=== PATIENT | female | born 1950 | race Caucasian/White ===

== ENCOUNTER 2022-01-05 09:58 | Emergency (ER) | payer OTHER ==
--- OUTSIDE RECORDS SUMMARY | 2022-01-05 10:00 | XMS REPORT | Continuity of Care Document ---
:1950 Author Organization [facility] t Address [address] [place] [address] Care Team Providers Name Role Phone Karri Attending Clinician Unavailable Karri Admitting Clinician Unavailable Physician, Primary or Family Admitting Clinician Unavailabl e Payers Payer Name Policy Type Policy Number Effective Date Expiration Date S ource Problems This patient has no known problems. Allergies, Adverse Reactions, Alerts Allergy Allergy Status Severity Reaction(s) Onset Inactive Treating Comm ents Source Name Type Date Date Clinician No Known DA Active U [facility] 07-10 Clear s 00:00: Sneed 00 [facility] No Known DA Active U [facility] Allergie 07-10 Clear s 00:00: Sneed 00 [facility] No Known DA Active U 2017-06 [facility] 06-17 [place] [facility] DA Active [place] 2017-06 [facility] tape 06-17 [place] [facility] No Known DA Active U 2017-06 [facility] 06-17 [place] Allergie 00:00: [facility]ope [facility] adhesive DA Active [place] RASH 2017-06 [facility] tape 06-17 [place] 00:[facility]: [facility] adhesive DA Active [place] 2017-06 [facility] [place] Medications This patient has no known medications. Procedures Procedure Date / Time Performed Performing Clinician Sourc e [id number] 2020-08-14 00:00:00 [email or web address] [facility] Encounters Start End Encounter Admission Attending Care Care Encounter Source Date/Time Date/Time Type Type Clinicians Facility Department ID 2020-08-14 2020-08-18 Inpatient BOBBY LandrumTO ADMI [id number] [facility] 11:00:00 22:38:16 [facility] 2020-07-23 2020-07-23 Outpatient VALENTINA Zeng LABO [id number] [facility] 18:09:00 18:09:00 [place] [id number] [facility] 2020-07-23 2020-07-23 Outpatient BOBBY ZengTO SURG [id number] [facility] 13:05:00 13:05:00 [facility] Results Test Description Test Time Test Comments Results Result Comments Source HGB HCT 2020-08-15 06:01:00 Test Item Value Reference Range Interpretation Comme nts HEMOGLOBIN (test code = HGB) 11.8 g/dL 12-16 L HEMATOCRIT (test code = HCT) 35.4 % 37-47 L SPECIMEN COMMENT: POD #1Novel Coronavirus 2019 [id number] 13:16:00 Test Item Value Reference Range Interpretation Comments Novel Coronavirus Negative Negative Positive r esults are 2019 Inhouse (test indicativ e of the presence code = COVNONPUI) ofSARS-CoV -2 RNA, clinical correlation wit h patient historyand othe r diagnostic info rmation is necessary to determinepatien t infection status. Positiv e results do not rule out bacterial infection or co -infection with other viru ses. Negative result s do not preclude SARS-C oV-2 infection andsh ould not be used as the tomas e basis for patient managementdecis ions. Negative result s must be combined with otherclinical observations, p atient history, and epidemiological information . Detection of SARS-CoV-2 RNA may be affe cted bysample collec tion methods, storag e conditions, and /or stageof infection. Carissa l RNA mutations, vacc inations, antiviraltherap eutics, antibiotics, chemotherapeuti c orimmunosuppres joann drugs have not been e valuated for effectson d etection. Results are for the identification of SARS-CoV-2 RNA usingthe [employer]onimo M2000 Sy stem under the FDA Emergen cy UseAuthorizatio n. The testing is perf ormed by personneltraine d in the procedures for the Baca M2000 molecular diagnostic SARS-CoV-2 assa y in vitro. Novel Coronavirus 2018 [id number] 13:15:00 Test Item Value Reference Range Interpretation Comments Novel Coronavirus Negative Negative Positive r esults are 2019 Inhouse (test indicativ e of the presence code = COVNONPUI) ofSARS-CoV -2 RNA, clinical correlation wit h patient historyand othe r diagnostic info rmation is necessary to determinepatien t infection status. Positiv e results do not rule out bacterial infection or co -infection with other viru ses. Negative result s do not preclude SARS-C oV-2 infection andsh ould not be used as the tomas e basis for patient managementdecis ions. Negative result s must be combined with otherclinical observations, p atient history, and epidemiological information . Detection of SARS-CoV-2 RNA may be affe cted bysample collec tion methods, storag e conditions, and /or stageof infection. Carissa l RNA mutations, vacc inations, antiviraltherap eutics, antibiotics, chemotherapeuti c orimmunosuppres joann drugs have not been e valuated for effectson d etection. Results are for the identification of SARS-CoV-2 RNA usingthe Baca M2000 Sy stem under the FDA Emergen cy UseAuthorizatio n. The testing is perf ormed by personneltraine d in the procedures for the Baca M2000 molecular diagnostic SARS-CoV-2 assa y in vitro. COMPREHENSIVE METABOLIC [id number] 13:47:00 Test Item Value Reference Range Interpretation Comments SODIUM (test code = 142 mmol/L 136-145 N NA) POTASSIUM (test code = 4.2 mmol/L 3.5-5.1 N K) CHLORIDE (test code = 101.0 mmol/L 98-107 N CL) CARBON DIOXIDE (test 30.2 mmol/L 21-32 N code = CO2) GLUCOSE (test code = 88 mg/dL 70-110 N GLU) BLOOD UREA NITROGEN 19 mg/dL 7-18 H (test code = BUN) GLOMERULAR FILTRATION 55.9 >60 Unit o f measure: RATE (test code = GFR) mL/mi n/1.73 [id number] Range:Healthy Adults >90 mL/min/1.73 m2 For Chronic Kidney Disease: St age II Mild Decrease in GFR 60-90 St age III Moderate Decrease in GFR 30-59 Stage IV Severe Decre ase in GFR 15- 29 Stage V Kidney Failure <15 CREATININE (test code 0.98 mg/dL 0.55-1.30 N = CREAT) TOTAL PROTEIN (test 6.9 g/dL 6.4-8.2 N code = PROT) ALBUMIN (test code = 3.7 g/dL 3.4-5.0 N ALB) GLOBULIN (test code = 3.2 g/dL 2.2-4.2 N GLOB) ALBUMIN/GLOBULIN RATIO 1.2 0.7-2.0 N (test code = A/G) CALCIUM (test code = 8.6 mg/dL 8.2-10.1 N CA) BILIRUBIN TOTAL (test 0.50 mg/dL 0.2-1.00 N code = BILT) SGOT/AST (test code = 35.0 U/L 15-37 N AST) SGPT/ALT (test code = 38.0 U/L 12-78 N Please note new ALT) normal range. ALKALINE PHOSPHATASE 80 U/L 46-116 N TOTAL (test code = ALKP) PROTHROMBIN [id number] 13:47:00 Test Item Value Reference Range Interpretation Comments PROTHROMBIN TIME 10.6 secs 10.1-12.5 N PATIENT (test code = PTP) INTERNATIONAL NORMAL 0.93 <2.0 RECOMME NDED THERAPEUTIC RATIO (test code = RANGE FOR ORAL INR) ANTICOAGULANTTR EATMENT: CONDI TION INRProphylaxis of venous thrombos is in 2.0 - 3.0 high-risk medic al or surgical patientsTreatme nt of venous thrombos is 2.0 - 3.0Prevention o f embolism 2.0 - 3.0Prevention o f recurrent embol ism, or 3.0 - 4. 5 patients with mechanical pros thetic intravascular v soto IS PATIENT ON ANTICOAGULANTS ? NHas Lab been notified if Patient is on Heparin Drip? NOTHROMBOPLASTIN TIME [id number] 13:47:00 Test Item Value Reference Range Interpretation Comments PTT ACTIVATED (test code = APTT) 35.1 secs 24.9-37.0 N IS PATIENT ON ANTICOAGULANTS ? HIas Lab been notified if Patient is on Heparin Drip? NOCBC W/AUTO [id number] 13:26:00 Test Item Value Reference Range Interpretation Comments WHITE BLOOD CELL (test code = WBC) 7.7 K/mm3 5.8-11.0 N RED BLOOD CELL (test code = RBC) 4.15 M/mm3 4.2-5.4 L HEMOGLOBIN (test code = HGB) 12.3 g/dL 12-16 N HEMATOCRIT (test code = HCT) 37.6 % 37-47 N MEAN CELL VOLUME (test code = MCV) 91 fL 80-98 N MEAN CELL HGB (test code = MCH) 29.6 pg 27-34 N MEAN CELL HGB CONCENTRATION (test 32.7 g/dL 30.8-34.1 N code = MCHC) RED CELL DISTRIBUTION WIDTH (test 12.8 % 11-16 N code = RDW) PLT (test code = PLT) 239 K/mm3 130-400 N MEAN PLATELET VOLUME (test code = 10.5 fL 8.9-12.1 N MPV) NEUTROPHIL % (test code = NT%) 63.1 % 45-70 N LYMPHOCYTE % (test code = LY%) 24.5 % 20-40 N MONOCYTE % (test code = MO%) 9.2 % 3-10 N EOSINOPHIL % (test code = EO%) 2.6 % 1-5 N BASOPHIL % (test code = BA%) 0.5 % 0.0-1.1 N NEUTROPHIL # (test code = NT#) 4.88 K/mm3 2.00-7.50 N LYMPHOCYTE # (test code = LY#) 1.89 K/mm3 1.50-4.00 N MONOCYTE # (test code = MO#) 0.71 K/mm3 0.2-0.8 N EOSINOPHIL # (test code = EO#) 0.20 K/mm3 0.04-0.4 N BASOPHIL # (test code = BA#) 0.04 K/mm3 0.02-0.10 N MANUAL DIFF REQUIRED (test code = NO MANUAL DIFF MDIFF) NUCLEATED RED BLOOD CELL (test 0 % 0-0 N code = NRBC)
--- NOTE | 2022-01-05 11:58 | RAD REPORT ---
EXAM DESCRIPTION: RAD - Humerus Right - 01/05/2022 11:38 am CLINICAL HISTORY: PAIN COMPARISON: No comparisons FINDINGS: No fracture or dislocation is seen.
--- NOTE | 2022-01-05 12:00 | RAD REPORT ---
EXAM DESCRIPTION: RAD - Foot Right 2 View - 01/05/2022 11:38 am CLINICAL HISTORY: PAIN COMPARISON: No comparisons FINDINGS: Moderate plantar calcaneal spur. Lucency is seen involving the base of the proximal phalan x of the fourth toe medial aspect, suspicious for a fracture.
--- NOTE | 2022-01-05 12:21 | EDPHYS ---
Physician Documentation [facility] Name: Michaelle Tsai Age: 71 yrs Sex: Female : 1950 Arrival Date: 01/05/2022 Time: 09:59 Bed 14 Private MD: Yash Alvarez E ED Physician Israel Chapa HPI: 01/05 12:20 This 71 yrs old Female presents to ER via Ambulatory with complaints of Arm Injury. jr8 12:20 Onset: The symptoms/episode began/occurred acutely, today. Associated signs and jr8 symptoms: The patient has no apparent associated signs or symptoms. Severity of symptoms: At their worst the symptoms were mild, in the emergency department the symptoms are unchanged. The patient has not experienced similar symptoms in the past. The patient has not recently seen a physician. Patient stated that she tripped and landed on right arm and foot. Pain to sites since incident. Denies hitting head or neck. No LOC . Historical: - Allergies: 11:03 No Known Allergies; jl7 - PMHx: 11:03 Hypertensive disorder; jl7 - PSHx: 11:03 section; Total abdominal hysterectomy; Cholecystectomy; jl7 - Immunization history:: Client reports receiving the 2nd dose of the Covid vaccine. - Social history:: Smoking status: Patient denies any tobacco usage or history of. ROS: 12:21 Eyes: Negative for injury, pain, redness, and discharge, ENT: Negative for injury, jr8 pain, and discharge, Neck: Negative for injury, pain, and swelling, Cardiovascular: Negative for chest pain, palpitations, and edema, Respiratory: Negative for shortness of breath, cough, wheezing, and pleuritic chest pain, Abdomen/GI: Negative for abdominal pain, nausea, vomiting, diarrhea, and constipation, Back: Negative for injury and pain, Skin: Negative for injury, rash, and discoloration, Neuro: Negative for headache, weakness, numbness, tingling, and seizure. 12:21 MS/extremity: Positive for pain, tenderness, of the right foot and right arm. Exam: 12:21 Constitutional: This is a well developed, well nourished patient who is awake, alert, jr8 and in no acute distress. Head/Face: Normocephalic, atraumatic. Eyes: Pupils equal round and reactive to light, extra-ocular motions intact. Lids and lashes normal. Conjunctiva and sclera are non-icteric and not injected. Cornea within normal limits. Periorbital areas with no swelling, redness, or edema. ENT: Nares patent. No nasal discharge, no septal abnormalities noted. Tympanic membranes are normal and external auditory canals are clear. Oropharynx with no redness, swelling, or masses, exudates, or evidence of obstruction, uvula midline. Mucous membranes moist. Neck: Trachea midline, no thyromegaly or masses palpated, and no cervical lymphadenopathy. Supple, full range of motion without nuchal rigidity, or vertebral point tenderness. No Meningismus. Chest/axilla: Normal chest wall appearance and motion. Nontender with no deformity. No lesions are appreciated. Cardiovascular: Regular rate and rhythm with a normal S1 and S2. No gallops, murmurs, or rubs. Normal PMI, no JVD. No pulse deficits. Respiratory: Lungs have equal breath sounds bilaterally, clear to auscultation and percussion. No rales, rhonchi or wheezes noted. No increased work of breathing, no retractions or nasal flaring. Abdomen/GI: Soft, non-tender, with normal bowel sounds. No distension or tympany. No guarding or rebound. No evidence of tenderness throughout. Back: No spinal tenderness. No costovertebral tenderness. Full range of motion. Skin: Warm, dry with normal turgor. Normal color with no rashes, no lesions, and no evidence of cellulitis. Neuro: Awake and alert, GCS 15, oriented to person, place, time, and situation. Cranial nerves II-XII grossly intact. Motor strength 5/5 in all extremities. Sensory grossly intact. 12:21 Musculoskeletal/extremity: Extremities: grossly normal except: noted in the right arm: pain, tenderness, Mid shaft humerus, noted in the right foot: pain, tenderness, Dorsal right foot, ROM: intact in all extremities, limited active range of motion due to pain, in the right arm, limited passive range of motion due to pain, in the right arm, Circulation is intact in all extremities. Sensation intact. Vital Signs: 11:00 BP 132 / 62; Pulse 65; Resp 17; Temp 98.2; Pulse Ox 100% ; Weight 104.33 kg; Height 5 jl7 ft. 2 in. (157.48 cm); Pain 6/10; 12:14 BP 150 / 75; Pulse 66; Resp 16; Temp 97.8(O); Pulse Ox 99% on R/A; Weight 104.3 kg; ha1 Height 5 ft. 5 in. (165.10 cm) (R); Pain 10/10; 12:14 Body Mass Index 38.26 (104.30 kg, 165.10 cm) ha1 MDM: 12:00 Patient medically screened. jr8 12:21 Data reviewed: vital signs, nurses notes, radiologic studies, plain films. Data jr8 interpreted: Pulse oximetry: on room air is 100 %. Interpretation: normal. Counseling: I had a detailed discussion with the patient and/or guardian regarding: the historical points, exam findings, and any diagnostic results supporting the discharge/admit diagnosis, radiology results, the need for outpatient follow up, a family practitioner, to return to the emergency department if symptoms worsen or persist or if there are any questions or concerns that arise at home. 01/05 10:49 Order name: XRAY Humerus RIGHT; Complete Time: 12:00 jl7 01/05 10:49 Order name: XRAY Foot RIGHT 2 View; Complete Time: 12:01 jl7 Administered Medications: No medications were administered Disposition Summary: 01/05/22 12:20 Discharge Ordered Location: Home jr8 Problem: new jr8 Symptoms: have improved jr8 Condition: Stable jr8 Diagnosis - Contusion of right foot jr8 - Contusion of right upper arm jr8 Followup: jr8 - With: Yash Alavrez MD - When: 1 week - Reason: Recheck today's complaints, Continuance of care, Re-evaluation by your physician Discharge Instructions: - Discharge Summary Sheet jr8 - Contusion jr8 - Foot Contusion jr8 Forms: - Medication Reconciliation Form jr8 - Thank You Letter jr8 - Antibiotic Education jr8 - Prescription Opioid Use jr8 Signatures: Dispatcher [employer] EDMS Viktor Nuñez PA PA jr8 Caitlin Lombardo RN RN jl7
--- NOTE | 2022-01-05 12:21 | ER ---
Nurse's Notes [facility] Name: Michaelle Tsai Age: 71 yrs Sex: Female : 1950 Arrival Date: 01/05/2022 Time: 09:59 Bed 14 Private MD: Yash Alvarez E Diagnosis: Contusion of right foot;Contusion of right upper arm Presentation: 01/05 11:00 Chief complaint: Patient states: Tripped over dog bed yesterday, pain to right 4th toe jl7 and right upper arm. Coronavirus screen: At this time, the client does not indicate any symptoms associated with coronavirus-19. Ebola Screen: No symptoms or risks identified at this time. Initial Sepsis Screen: Does the patient meet any 2 criteria? No. Patient's initial sepsis screen is negative. Does the patient have a suspected source of infection? No. Patient's initial sepsis screen is negative. Risk Assessment: Do you want to hurt yourself or someone else? Patient reports no desire to harm self or others. Onset of symptoms was January 04, 2022. 11:00 Method Of Arrival: Ambulatory 7 11:00 Acuity: ERIKA 4 jl7 Triage Assessment: 11:03 General: Appears in no apparent distress. uncomfortable, Behavior is calm, cooperative, jl7 appropriate for age. Pain: Complains of pain in right 4th toe and right upper arm. Derm: Skin is pink, warm \T\ dry. Musculoskeletal: Swelling absent. Injury Description: pain. Historical: - Allergies: 11:03 No Known Allergies; jl7 - PMHx: 11:03 Hypertensive disorder; jl7 - PSHx: 11:03 section; Total abdominal hysterectomy; Cholecystectomy; jl7 - Immunization history:: Client reports receiving the 2nd dose of the Covid vaccine. - Social history:: Smoking status: Patient denies any tobacco usage or history of. Screenin:14 Abuse screen: Denies threats or abuse. Nutritional screening: No deficits noted. ha1 Tuberculosis screening: No symptoms or risk factors identified. 12:14 Fall Risk None identified. ha1 Assessment: 12:14 General: Appears comfortable, Behavior is calm, cooperative. Pain: Complains of pain in ha1 right arm and plantar aspect of right fourth toe Pain does not radiate. Pain at worst was 10 out of 10 on a pain scale. Quality of pain is described as tender, throbbing, Pain began three hours ago. 12:14 Neuro: Level of Consciousness is awake, alert, obeys commands, Oriented to person, ha1 place, time, situation. Cardiovascular: Heart tones S1 S2 present. Respiratory: Airway is patent. GI: No signs and/or symptoms were reported involving the gastrointestinal system. : No signs and/or symptoms were reported regarding the genitourinary system. EENT: No signs and/or symptoms were reported regarding the EENT system. Derm: Skin is healthy with good turgor, Skin is dry, Skin is pink, warm \T\ dry. Musculoskeletal: Capillary refill < 3 seconds, Range of motion: able to move all extremities. reports having pain in the right arm with extension and rotation. Dr. rgewal shift States that X-rays evaluation has been done and there is no fracture of the right arm. Vital Signs: 11:00 BP 132 / 62; Pulse 65; Resp 17; Temp 98.2; Pulse Ox 100% ; Weight 104.33 kg; Height 5 jl7 ft. 2 in. (157.48 cm); Pain 6/10; 12:14 BP 150 / 75; Pulse 66; Resp 16; Temp 97.8(O); Pulse Ox 99% on R/A; Weight 104.3 kg; ha1 Height 5 ft. 5 in. (165.10 cm) (R); Pain 10/10; 12:14 Body Mass Index 38.26 (104.30 kg, 165.10 cm) ha1 ED Course: 09:59 Patient arrived in ED. rg4 09:59 Yash Alvarez MD is Private Physician. rg4 11:03 Triage completed. jl7 11:03 Arm band placed on right wrist. jl7 11:04 Patient placed in waiting room, Patient notified of wait time. jl7 11:28 XRAY Humerus RIGHT In Process Unspecified. EDMS 11:28 XRAY Foot RIGHT 2 View In Process Unspecified. EDMS 12:00 Viktor Nuñez PA is PHCP. jr8 12:00 Israel Chapa MD is Attending Physician. jr8 12:14 Patient has correct armband on for positive identification. Bed in low position. Side ha1 rails up X 1. 12:18 Lombardo, Jahala, RN is Primary Nurse. jl7 12:19 Yash Alvarez MD is Referral Physician. jr8 12:40 Patient did not have IV access during this emergency room visit. ha1 12:40 No provider procedures requiring assistance completed. ha1 Administered Medications: No medications were administered Medication: 12:14 VIS not applicable for this client. ha1 Outcome: 12:20 Discharge ordered by . jr8 12:40 Discharged to home ambulatory. ha1 12:40 Condition: stable 12:40 Discharge instructions given to patient, family. 12:54 Patient left the ED. ha1 Signatures: Dispatcher [employer] EDMS Viktor Nuñez PA PA jr8 Allyssa Mathew rg4 Caitlin Lombardo RN RN jl7 Rina Dennis RN RN ha1 Corrections: (The following items were deleted from the chart) 12:50 12:48 Condition: stable ha1 ha1 12:50 12:48 Discharged to home ambulatory, ha1 ha1 12:50 12:48 Discharge instructions given to patient, family, ha1 ha1
[2022-01-05 13:24] VITALS: BP 150/75; TEMP 97.8; O2SAT 99
== END 2022-01-05 12:54 | disposition home or self-care (01) ==
LOC: ER 09:58
DX: S90.31XA Contusion of right foot, initial encounter (principal); S40.021A Contusion of right upper arm, initial encounter; I10 Essential (primary) hypertension
CPT/HCPCS: 99283